=== PATIENT | female | born 1965 | race Caucasian/White ===

== ENCOUNTER → 2022-06-04 | Day surgery (SDC) | payer OTHER ==
[~2022-06-04] VITALS: Ht 167.6 cm; Wt 52.2 kg
[~2022-06-04] MED LIST: BUPRENORPHIN-N1 EACH PO; BUSPAR5 MG PO; IBUPROFEN800 M1 PO; ST. JOHN'S WOR350 MG PO
[2022-06-04 06:46] LABS: HCT 35.8 % (37.0-47.0); HGB 12.1 g/dl (12.5-16.0); MCH 31.8 pg (25.0-31.0); MCHC 33.8 g/dL (32.0-36.0); MPV 9.4 fL (6.0-9.5); RBC 3.81 M/uL (4.20-5.40); RDW 13.6 % (11.5-14.0); WBC 6.3 K/uL (4.0-10.5)
[2022-06-04 07:03] LABS: ALBUMIN 3.4 g/dL (3.4-5.0); BILIRUBIN - TOTAL 0.4 mg/dL (0.2-1.0); BUN/CREAT RATIO (CALC) 26.5 RATIO; CREATININE 0.68 mg/dL (0.51-0.95); GLOBULIN (CALCULATION) 3.2 g/dL; POTASSIUM 3.7 mmol/L (3.5-5.1); TOTAL PROTEIN 6.6 g/dL (6.4-8.2)
== END | disposition home or self-care (01) ==
LOC: FAS 06-03 13:45
PROVIDERS: Orthopaedic Surgery
DX: S42.032A Displaced fracture of lateral end of left clavicle, initial encounter for closed fracture (principal); F17.200 Nicotine dependence, unspecified, uncomplicated; X58.XXXA Exposure to other specified factors, initial encounter
CPT/HCPCS: 36415; 71045; 80053; 93005; J0690; J1100; J1170; J1885; J2250; J2405; J2704; J3010; J7120